=== PATIENT | female | born 1990 | race Two or more races ===

== ENCOUNTER → 2023-04-26 | Outpatient (CLI) | payer OTHER | LOC: M WHC 10:47 | PROVIDERS: ATTEND Physician Assistant | DX: N63.21 Unspecified lump in the left breast, upper outer quadrant (principal); R92.343 Mammographic extreme density, bilateral breasts; D24.2 Benign neoplasm of left breast; D24.1 Benign neoplasm of right breast; N60.11 Diffuse cystic mastopathy of right breast; N60.12 Diffuse cystic mastopathy of left breast | CPT/HCPCS: 76641; 77066; G0279 ==